=== PATIENT | male | born 1950 | race Caucasian/White ===

== ENCOUNTER 2021-05-06 09:55 | Observation (INO) ==
--- NOTE | 2020-11-18 12:39 | PAT Medication Instructions ---
Medication Instructions Date of Service November 18, 2020 Home Medications aspirin 81 mg tablet,delayed release 81 mg PO QPM hydrochlorothiazide 25 mg tablet 25 mg PO QPM lisinopril 40 mg tablet 40 mg PO QPM meloxicam 15 mg tablet (Mobic) 15 mg PO QPM Centrum Silver Ultra Men's 1 tab PO QPM omega-3 fatty acids 1,000 mg capsule (Fish Oil Concentrate) 2,000 mg PO QPM simvastatin 10 mg tablet 10 mg PO QPM tamsulosin 0.4 mg capsule 0.4 mg PO QPM acetaminophen 500 mg capsule 1,000 mg PO Q6H PRN ASK your surgeon for instructions meloxicam 15 mg tablet (Mobic) 15 mg PO QPM STOP taking 2 weeks before surgery (or as soon as possible if surgery is within 2 weeks) omega-3 fatty acids 1,000 mg capsule (Fish Oil Concentrate) 2,000 mg PO QPM Take morning of surgery With a small sip of water, OTHERWISE NOTHING TO EAT OR DRINK AFTER MIDNIGHT: acetaminophen 500 mg capsule 1,000 mg PO Q6H PRN (okay to take up to 4 hours prior to surgery if needed) Take evening before surgery aspirin 81 mg tablet,delayed release 81 mg PO QPM (continue as normal unless told otherwise by surgeon) hydrochlorothiazide 25 mg tablet 25 mg PO QPM lisinopril 40 mg tablet 40 mg PO QPM Centrum Silver Ultra Men's 1 tab PO QPM simvastatin 10 mg tablet 10 mg PO QPM tamsulosin 0.4 mg capsule 0.4 mg PO QPM acetaminophen 500 mg capsule 1,000 mg PO Q6H PRN (if needed) Other Notes If you have any questions please call us at [phone] or [phone] or [phone] or [phone]
--- NOTE | 2020-11-22 09:25 | Anesthesiology Consultation ---
Date of Service November 22, 2020 Assessment & Plan (1) Encounter for pre-operative examination: - Abnormal CXR: Preop CXR noted 8mm ANA nodular density. Awaiting response from PCP if further chest imaging needed prior to surgery from their perspective. - COVID screening: Per assessment on 11/22: Travel screen negative, no known COVID-19 positive contacts or current COVID-19 related symptoms. Patient vaccinated. Surgeon arranging preop COVID testing. Awaiting results. Chart Review Chart Review: Patient seen in Pre Admission Testing Teaching & Discussion Pre-Anesthesia Teaching/Discussion Notes: Instructed NPO after midnight before surgery,except medications with 15 cc of water. Medication instructions provided according to the PAT guidelines. History Surgery Operation Date: 12/24/20 09:55 Proposed Procedures p Right Total Knee Arthroplasty - Leif Morales DO Height/Weight Height: 5 ft 6 in Weight: 81.6 kg Allergies Allergy/AdvReac Type Severity Reaction Status Date / Time No Known Allergies Allergy Verified 11/17/20 10:07 Medications Home Medications Medication Instructions Recorded Confirmed Last Taken aspirin 81 mg tablet,delayed 81 mg PO QPM 10/05/20 11/17/20 Unknown release hydrochlorothiazide 25 mg tablet 25 mg PO QPM 10/05/20 11/17/20 Unknown lisinopril 40 mg tablet 40 mg PO QPM 10/05/20 11/17/20 Unknown meloxicam 15 mg tablet (Mobic) 15 mg PO QPM 10/05/20 11/17/20 Unknown [id number]-[id number] acid 300 1 tab PO QPM 10/05/20 11/17/20 Unknown mcg-lycopene 600 mcg-lutein 300 mcg tablet (Centrum Silver Ultra Men's) omega-3 fatty acids 1,000 mg 2,000 mg PO QPM 10/05/20 11/17/20 Unknown capsule (Fish Oil Concentrate) simvastatin 10 mg tablet 10 mg PO QPM 10/05/20 11/17/20 Unknown tamsulosin 0.4 mg capsule 0.4 mg PO QPM 10/05/20 11/17/20 Unknown acetaminophen 500 mg capsule 1,000 mg PO Q6H PRN 11/17/20 11/17/20 Unknown Past Medical History Medical History Arthritis Hyperlipidemia Hypertension Exercise / Class Metabolic Activity II 4-5 Yardwork/Stairs/Walk up hill (one FS (no CP, no SOB)) Past Family History Family History Other No known health problems Past Surgical History Surgical History History of colonoscopy 2020 History of open reduction and internal fixation (ORIF) procedure R/L elbow Past Anesthesia History No Hx of Anesthesia Complications and No Family Hx of Anesthesia Complications History of PONV No Hx of PONV and No Hx of Motion Sickness Social History Smoking Status: Never smoker Do You Dip or Chew Tobacco: Yes (1 can/3 days > advised none DOS) Hx Alcohol Use: Yes Alcohol type: beer alcohol intake frequency: a few times a week Hx Substance Use: Yes substance use type: prescription drug Review of Systems Patient denies chest pain, shortness of breath, dyspnea on exertion, fever, chills, cough, wheezing, palpitations. Physical Exam Vital Signs VITALS BP 121/67 P 58 TEMP 98.0 SP02 96%RA RESP 16 PHYSICAL Midly decreased cervical extension range of motion. Full TMJ range of motion. TMD 3 finger breaths Mallampati Score 2 Dentition: intact, several caps Lungs: clear throughout to auscultation Cardiac: regular rate and rhythm, no murmurs noted Spine: normal Carotid arteries: negative bruit Extremities: no edema Lab Results Anesthesia Preop Results Results Anesthesia Widget: WBC 6.04 K/uL (4.8-10.8) 11/22/20 Hgb 15.1 g/dL (14.0-18.0) 11/22/20 Hct 43.3 % (42-52) 11/22/20 Plt 242 K/uL (130-400) 11/22/20 Na 138 mmol/L (136-145) 11/22/20 K 4.2 mmol/L (3.5-5.1) 11/22/20 Cl 104 mmol/L (98-107) 11/22/20 CO2 27 mmol/L (21-32) 11/22/20 BUN 18 mg/dl (7-18) 11/22/20 Creat 1.08 mg/dl (0.6-1.4) 11/22/20 Glucose Level 92 mg/dl (70-99) 11/22/20 PT 10.4 Seconds (9.0-12.0) 11/22/20 PTT 27.8 Seconds (21.0-31.0) 11/22/20 INR 1.0 (0.9-1.1) 11/22/20 Blood Type O Positive 11/22/20 Antibody Screen NEGATIVE 11/22/20 Testing Electrocardiogram Date: 11/22/20 SB at 55bpm. Chest X-Ray Date: 11/22/20 No active disease in the chest. Question an 8 mm nodular density in the left upper lung. This projects over 2 ribs and may be artifactual. A repeat PA image with oblique views is recommended for reassessment.
--- NOTE | 2021-02-09 10:20 | Anesthesiology Consultation ---
Date of Service February 09, 2021 Assessment & Plan (1) Encounter for pre-operative examination: Chart Review Chart Review: Acceptable Risk for Surgery and Patient NOT seen in Pre Admission Testing The patient is an acceptable medical risk for the same day joint program. Consults Requested none History Surgery Operation Date: 02/14/21 08:50 Proposed Procedures p Right Total Knee Arthroplasty - Leif Morales DO PCP ordered a CT to follow-up on abnormal findings on CXR. CT done 12/13/20 showed multiple bilateral calcified and noncalcified 5 mm or less nodules. Recommended follow-up in 12 months. Height/Weight Height: 5 ft 6 in Weight: 81.6 kg Allergies Allergy/AdvReac Type Severity Reaction Status Date / Time No Known Allergies Allergy Verified 02/02/21 11:42 Medications Home Medications Medication Instructions Recorded Confirmed Last Taken aspirin 81 mg tablet,delayed 81 mg PO QPM 10/05/20 02/02/21 Unknown release hydrochlorothiazide 25 mg tablet 25 mg PO QPM 10/05/20 02/02/21 Unknown lisinopril 40 mg tablet 40 mg PO QPM 10/05/20 02/02/21 Unknown meloxicam 15 mg tablet (Mobic) 15 mg PO QPM 10/05/20 02/02/21 Unknown qhsqrjmj-slb-brmcr acid 300 1 tab PO QPM 10/05/20 02/02/21 Unknown mcg-lycopene 600 mcg-lutein 300 mcg tablet (Centrum Silver Ultra Men's) omega-3 fatty acids 1,000 mg 2,000 mg PO QPM 10/05/20 02/02/21 Unknown capsule (Fish Oil Concentrate) simvastatin 10 mg tablet 10 mg PO QPM 10/05/20 02/02/21 Unknown tamsulosin 0.4 mg capsule 0.4 mg PO QPM 10/05/20 02/02/21 Unknown acetaminophen 500 mg capsule 1,000 mg PO Q6H PRN 11/17/20 02/02/21 Unknown Past Medical History Medical History Arthritis Hyperlipidemia Hypertension Past Family History Family History Other No known health problems Past Surgical History Surgical History History of colonoscopy 2020 History of open reduction and internal fixation (ORIF) procedure R/L elbow Social History Smoking Status: Never smoker Do You Dip or Chew Tobacco: Yes (1 can/3 days > advised none DOS) Hx Alcohol Use: Yes Alcohol type: beer alcohol intake frequency: a few times a week Hx Substance Use: No substance use type: does not use Testing Electrocardiogram Date: 11/22/20 SB at 55bpm. Chest X-Ray Date: 11/22/20 No active disease in the chest. Question an 8 mm nodular density in the left upper lung. This projects over 2 ribs and may be artifactual. A repeat PA image with oblique views is recommended for reassessment. Other Testing CT scan 12/13/20 Impression: 1. Multiple bilateral calcified and noncalcified 5 mm less nodules. Recommend 12 month follow-up to reevaluate. 2. Cholelithiasis.
--- NOTE | 2021-05-04 12:24 | Anesthesiology Consultation ---
Date of Service May 04, 2021 Assessment & Plan (1) Encounter for pre-operative examination: Chart Review Chart Review: Acceptable Risk for Surgery and Patient NOT seen in Pre Admission Testing Consults Requested none History Surgery Operation Date: 05/06/21 10:45 Proposed Procedures p Right Total Knee Arthroplasty - Leif Morales DO Height/Weight Height: 5 ft 5 in Weight: 81.647 kg Allergies Allergy/AdvReac Type Severity Reaction Status Date / Time No Known Allergies Allergy Verified 04/29/21 10:46 Medications Home Medications Medication Instructions Recorded Confirmed Last Taken aspirin 81 mg tablet,delayed 81 mg PO QPM 10/05/20 04/29/21 Unknown release hydrochlorothiazide 25 mg tablet 25 mg PO QPM 10/05/20 04/29/21 Unknown lisinopril 40 mg tablet 40 mg PO QPM 10/05/20 04/29/21 Unknown meloxicam 15 mg tablet (Mobic) 15 mg PO QPM /09/2004/29/21 Unknown dsqbdrkp-inu-vsone acid 300 1 tab PO QPM 10/05/20 04/29/21 Unknown mcg-lycopene 600 mcg-lutein 300 mcg tablet (Centrum Silver Ultra Men's) omega-3 fatty acids 1,000 mg 2,000 mg PO QPM 10/05/20 04/29/21 Unknown capsule (Fish Oil Concentrate) simvastatin 10 mg tablet 10 mg PO QPM 10/05/20 04/29/21 Unknown tamsulosin 0.4 mg capsule 0.4 mg PO QPM 10/05/20 04/29/21 Unknown acetaminophen 500 mg capsule 1,000 mg PO Q6H PRN 11/17/20 04/29/21 Unknown Past Medical History Medical History Arthritis Hyperlipidemia Hypertension Past Family History Family History Other No known health problems Past Surgical History Surgical History History of colonoscopy 2020 History of open reduction and internal fixation (ORIF) procedure R/L elbow Social History Smoking Status: Former smoker Smoking cigarettes per day: QUIT IN HIGH SCHOOL Do You Dip or Chew Tobacco: Yes (1 CAN PER 2 DAYS) Hx Alcohol Use: Yes Alcohol type: beer alcohol intake frequency: a few times a month Hx Substance Use: No substance use type: does not use Testing Laboratory Results Laboratory Tests 11/22/20 02/10/21 02/10/21 09:56 09:16 09:16 WBC 6.04 Hgb 15.1 Plt Count 242 PT 9.9 INR 1.0 APTT 26.4 Sodium 136 Potassium 3.8 Chloride 101 Carbon Dioxide 28 BUN 16 Creatinine 1.21 Glucose 109 H Electrocardiogram Date: 11/22/20 Sinus bradycardia, rate 55 bpm Otherwise normal ECG No previous ECGs available Confirmed by Livan Marin ([id number]) on 11/22/2020 3:54:46 PM Chest X-Ray Date: 11/22/20 IMPRESSION: 1. No active disease in the chest. 2. Question an 8 mm nodular density in the left upper lung. This projects over 2 ribs and may be artifactual. A repeat PA image with oblique views is recommended for reassessment.
--- NOTE | 2021-05-05 13:33 | History & Physical Report ---
Date of Service May 05, 2021 Assessment & Plan (1) Primary osteoarthritis of right knee: We will proceed with a right total knee arthroplasty. Postoperatively he will be started on aspirin for DVT prophylaxis and kept overnight in the hospital for postoperative medical management. He plans to use home health upon discharge. History of Present Illness Chief Complaint: Osteoarthritis of the right knee . Primary Care Provider: NO PCP Martin is a pleasant 70-year-old male who is been dealing with chronic worsening right knee pain. X-rays and clinical examination have been diagnostic for advanced osteoarthritis of the right knee. He had a right knee arthroscopy in the past which gave him very little relief. He is failed years of conservative treatment. He has elected to proceed with a right total knee arthroplasty.. Allergies Allergy/AdvReac Type Severity Reaction Status Date / Time No Known Allergies Allergy Verified 04/29/21 10:46 Home Medications Medication Instructions Recorded Confirmed Type aspirin 81 mg tablet,delayed 81 mg PO QPM 10/05/20 04/29/21 History release hydrochlorothiazide 25 mg tablet 25 mg PO QPM 10/05/20 04/29/21 History lisinopril 40 mg tablet 40 mg PO QPM 10/05/20 04/29/21 History meloxicam 15 mg tablet (Mobic) 15 mg PO QPM 10/05/20 04/29/21 History tsxsheze-qdk-swkbf acid 300 1 tab PO QPM 10/05/20 04/29/21 History mcg-lycopene 600 mcg-lutein 300 mcg tablet (Centrum Silver Ultra Men's) omega-3 fatty acids 1,000 mg 2,000 mg PO QPM 10/05/20 04/29/21 History capsule (Fish Oil Concentrate) simvastatin 10 mg tablet 10 mg PO QPM 10/05/20 04/29/21 History tamsulosin 0.4 mg capsule 0.4 mg PO QPM 10/05/20 04/29/21 History acetaminophen 500 mg capsule 1,000 mg PO Q6H PRN 11/17/20 04/29/21 History Past Med/Surg History Medical History Arthritis Hyperlipidemia Hypertension Surgical History History of colonoscopy 2020 History of open reduction and internal fixation (ORIF) procedure R/L elbow Family History Other No known health problems Social History Smoking Status: Former smoker Cigarettes Per Day: QUIT IN HIGH SCHOOL; Second Hand Exposure: No; Hx Alcohol Use: Yes Alcohol type: beer Hx Substance Use: No Preferred Language: Mexican Communication Ability: Effective Telephone Order Clerk Required: No Beliefs That Will Affect Care: None Current Living Situation: Spouse current occupational status: employed current occupation: [employer] Feels Safe at Home: Yes Assistive Devices: Brace/Splint/Immobilizer and Glasses Review of Systems All systems reviewed & are unremarkable except as noted in HPI & below. Physical Exam On physical examination of the right knee, he has a slight varus deformity. Is good motion of 0 to 120 degrees. He has no instability. He has pain of the distal medial femoral condyle and over the medial joint line. . Constitutional WD/WN, vitals as above Eyes PERRL, conjunctivae normal, anicteric sclerae ENMT external ear and nose normal, oropharynx normal Neck trachea midline, no thyromegaly Respiratory normal respiratory effort Cardiovascular RRR, no murmur, no edema Gastrointestinal (Abdomen) normal bowel sounds, soft, nontender, no hepatosplenomegaly Psychiatric A+Ox3, euthymic affect Results & Data Results & Data Laboratory Results . Diagnostic Findings X-rays of the right knee show advanced osteoarthritis with joint space narrowing, osteophyte formation, and xxhx-bw-upqh articulation . PG Care Time/CCT Total # of Minutes Spent Total Time Spent with Patient: Total time spent is greater than 50% in coordination of care (as documented) at patient's floor/unit and/or counseling patient: Coding Level of Care Code None Diagnoses Primary osteoarthritis of right knee M17.11
[~2021-05-06 09:55] MED LIST: ACETAMINOPHEN 500 MG TAB PO SCH; BUPIVACAINE 0.25% 30 ML VIAL ONE; BUPIVACAINE 0.5 % 5 MG/1 ML PF 10ML VIAL ONE; DEXAMETHASONE SOD INJ 4 MG/ML VIAL ONE; EPINEPHrine INJ 1 MG/ML AMP ONE; FAMOTIDINE 20 MG TAB PO SCH; Ketorolac (*for OR use only*) 30 MG, dexAMETHasone 4 MG, KETAMINE HCL (**OR use only) 1... INFIL SCH; LACTATED RINGER'S 1,000 ML IV SCH; LIDOCAINE 2%/EPINEPHRINE 1:200,000 20 ML SDV ONE; LR 500ML BOLUS, THEN 15ML/HR IV SCH; LR 60ML/HR IV SCH; ROPIVACAINE 0.5% HCL/PF 150 MG, BUPIVACAINE 0.75% MPF 20 ML, EPINEPHrine 30MG/30ML (OR ... INFIL SCH; ROPIVACAINE 0.5% HCL/PF 150 MG, BUPIVACAINE 0.75% MPF 20 ML, EPINEPHrine 30MG/30ML (OR ... INSTIL SCH; TRANEXAMIC ACID 1,000 MG **IV Intra-op IV SCH; TRANEXAMIC ACID 1,000 MG **IV Pre-op IV SCH; ceFAZolin 2000MG 2,000 MG/15 ML SYR IV SCH; dexAMETHasone 4 MG TAB PO SCH
--- NOTE | 2021-05-06 10:17 | History & Physical Bridge Note ---
Date of Service May 06, 2021 History & Physical Bridge Note I have examined the patient, reviewed the History & Physical and in the interval since the performance of the History & Physical I have noted the following changes of clinical significance: no changes noted
[2021-05-06 11:06] LABS: Basophils # (auto) 0.05 K/uL (0-0.2); Basophils % (auto) 0.7 %; Eosinophils # (auto) 0.14 K/uL (0-0.5); Eosinophils % (auto) 2.1 %; Hematocrit (blood only) 45.7 % (42-52); Hemoglobin 15.8 g/dL (14.0-18.0); Immature Granulocytes # (auto) 0.01 K/uL (0.00-0.02); Immature Granulocytes % (auto) 0.1 %; Lymphocytes # (auto) 1.35 K/uL (1.2-3.4); Lymphocytes % (auto) 20.2 %; Mean Corpuscular Hemoglobin 29.6 pg (25-34); Mean Corpuscular Volume 85.6 fL (80-100); Mean Platelet Volume 10.1 fL (7.4-10.4); Monocytes # (auto) 0.78 K/uL (0.11-0.59); Monocytes % (auto) 11.7 %; Neutrophils # (auto) 4.35 K/uL (1.4-6.5); Neutrophils % (auto) 65.2 %; Platelet Count 269 K/uL (130-400); RDW Coefficient of Variation 13.7 % (11.5-14.5); RDW Standard Deviation 43.1 fL (36.4-46.3); Red Blood Count 5.34 M/uL (4.7-6.1); White Blood Count 6.68 K/uL (4.8-10.8)
[2021-05-06 11:11] LABS: Mean Corpuscular Hgb Conc 34.6 g/dL (32-36)
[2021-05-06 11:17] LABS: Partial Thromboplastin Time 27.6 Seconds (21.0-31.0); Prothrombin Time 10.2 Seconds (9.0-12.0)
[2021-05-06 11:28] LABS: BUN Creatinine Ratio 17.7 (10-20); Calcium 9.7 mg/dl (8.5-10.1); Creatinine Clr Calc Pharmacy 61.1 ml/min; Est GFR (African American) 76.4 ml/min; Potassium 3.9 mmol/L (3.5-5.1)
[2021-05-06] MEDS ORDERED: fentaNYL citrate 100 MCG/2 ML VIAL ONE (11:56)
[2021-05-06] MEDS ORDERED: MIDAZOLAM HCL 1 MG/ML 2ML VIAL ONE (11:56)
[2021-05-06] MEDS ORDERED: ONDANSETRON INJ 2 MG/ML 2 ML VIAL ONE (12:03)
[2021-05-06] MEDS ORDERED: PROPOFOL IV EMULSION 10 MG/ML 20 ML VIAL IV ONE (12:03)
[2021-05-06] MEDS ORDERED: LIDOCAINE 2% 2 ML VIAL/AMP(20MG/ML) INFIL ONE (12:03)
[2021-05-06] MEDS ORDERED: ePHEDrine sulfate 50 MG/ML AMP IV PRN (13:37)
[2021-05-06] MEDS ORDERED: fentaNYL citrate 100 MCG/2 ML VIAL IV PRN (13:37)
[2021-05-06] MEDS ORDERED: ONDANSETRON INJ 2 MG/ML 2 ML VIAL IV PRN ×2 (13:37→16:40)
[2021-05-06] MEDS ORDERED: ATROPINE SULFATE 0.1 MG/ML 10ML SYR IV PRN (13:37)
[2021-05-06] MEDS ORDERED: PROMETHAZINE HCL 6.25 MG in SODIUM CHLORIDE 0.9% 50 ML IV PRN (13:37)
--- NOTE | 2021-05-06 14:11 | Operative Report ---
PG Post Operative Report Pre & Post Diagnosis Operation Date: 05/06/21 12:25 Pre-Op Diagnosis: Degenerative Joint Disease Right Knee Post-Op Diagnosis: Degenerative Joint Disease Right Knee I identified the patient and participated in the time-out.: Yes Procedure Operation Date: 05/06/21 12:25 Actual Procedures p Right Total Knee Arthroplasty, Cemented(Right) - Leif Morales DO Surgeon Leif Morales DO Warehouse Worker Leif Cueva PAC Estimated Blood Loss 10 Findings Consistent with Post-Op Diagnosis Specimens Right femoral and tibial bone Complications none Disposition Disposition: Recovery Room Indications Martin is a pleasant 70-year-old male who is been dealing with chronic increasing right knee pain. X-rays and clinical examination have been diagnostic for advanced osteoarthritis of the right knee. After failing conservative treatment, he elected proceed with a right total knee arthroplasty. Description of Procedure Implants used: I used a Nya Persona total knee arthroplasty system with a size 8 standard femur, F tibia, 34 oval patella, and a size 14 medial congruent polyethylene bearing. All components were cemented in place with Biomet cement. Martin arrived [facility] for the above procedure. He was seen in the preoperative holding area and the operative extremity was identified and signed. He was given a preoperative antibiotic, TXA, a spinal anesthetic and an adductor nerve block. He was taken back to the operating room and laid on the table in supine position. He was given basic sedation. The operative knee was then prepped and draped in sterile fashion. A timeout was done, and the patient and the operative extremity was properly identified. A midline incision was made directly over the patella. Dissection was taken down to the extensor mechanism. A subvastus arthrotomy was used. The medial retinaculum was released and the fat pad was mostly excised. The knee was flexed and the ACL, PCL, and meniscus were removed. A drill was sent down the center of the femoral canal followed by an intramedullary cristian. Off that cristian a distal femoral cutting block was placed. 9 mm was resected off the distal femur at 5 of valgus. A posterior referencing AP sizing guide was then placed on the distal femur. The femur measured to be a size 8 standard. 2 drill holes were placed in 3 of external rotation. A 4-in-1 cutting block was then impacted into place. Anterior, posterior, and chamfer cuts were then made. The proximal tibia was then exposed. An external tibial alignment guide was placed. A tibial cut guide was then anchored in place and the proximal tibia was then resected. The posterior aspect of the knee was then opened up and any additional meniscus fragments and osteophytes were removed. The tibia measured to be a size F. The tibial plate was then placed in the appropriate rotation and the tibia was drilled and punched. Trial components were then placed. I used a size 14 medial congruent polyethyle ne insert. The knee was brought through a full range of motion and felt to be stable. The peg holes for the femoral component were then drilled. The patella was then everted and 9 mm was resected off the posterior aspect of the patella. The patella measured to be a size 34 oval. 3 peg holes were then drilled. A trial patella was placed. The knee was once again brought through a full range of motion and felt to be stable. Trial components were then removed. The surrounding soft tissues were injected with 100 cc of an orthopedic pain control cocktail. All components were then cemented into place with Biomet cement. The final polyethylene insert was then snapped into place. Once cement was dry the tourniquet was deflated. Hemostasis was obtained. A dilute betadyne lavage was then done for 3 minutes. The joint was then irrigated with normal saline solution. The subvastus arthrotomy was then closed with #1 Vicryl suture. The skin was closed with 2-0 Vicryl, 3-0V lock suture, and jennifer. A soft compressive dressing was placed. He was then transferred to a hospital bed and taken to the postanesthesia care unit in stable condition. He tolerated the procedure well. Leif Cueva PA-C, was present for the entire procedure. He was critical for patient positioning, prepping, draping, retraction exposure, wound closure and application of sterile dressing. I attest to the content of the Intraoperative Record and any orders documented therein. Any exceptions are noted below.
--- NOTE | 2021-05-06 15:20 | Anesthesiology Progress Note ---
Date of Service May 06, 2021 Anesthesia Post Procedure Vital Signs Vital Signs: Temp Pulse Pulse Resp BP Pulse Ox 05/06/21 15:10 66 15 108/65 95 05/06/21 15:00 62 13 126/68 97 05/06/21 14:50 67 16 117/81 97 05/06/21 14:40 60 17 119/66 98 05/06/21 14:33 36.1 C L 73 16 104/66 98 05/06/21 10:43 36.8 C 64 18 135/82 99 Pain Intensity Right Knee: Pain Intensity: 2 Transfer of Care Handoff Completed per policy Notes Mental Status: alert / awake / arousable Patient Amnestic to Procedure: Yes Nausea / Vomiting: adequately controlled Pain: adequately controlled Airway Patency, RR, SpO2: stable & adequate BP & HR: stable & adequate Hydration State: stable & adequate Anesthetic Complications: no major complications apparent
--- NOTE | 2021-05-06 16:23 | XRay Report ---
RIGHT KNEE 2 VIEWS History: Right total knee arthroplasty. Degenerative arthritis. Postop. FINDINGS: The patient is status post a right total knee arthroplasty. The hardware is intact. No frac ture or dislocation. Skin jennifer are in place. IMPRESSION: Right total knee arthroplasty. No evidence for hardware complication. ACT 112: Negative or not required by law. Electronically signed by: Carlton Bradshaw M.D. 05/06/2021 4:22 PM
[2021-05-06] MEDS ORDERED: bisacodyL 10 MG SUPP PR PRN (16:40)
[2021-05-06] MEDS ORDERED: oxyCODONE HCL IR 5 MG TAB (IMMEDIATE RELEASE) PO PRN (16:40)
[2021-05-06] MEDS ORDERED: HYDROmorphone INJ 0.5 MG/0.5 ML SYR IV PRN (16:40)
[2021-05-06] MEDS ORDERED: METOCLOPRAMIDE HCL INJ 5 MG/ML 2 ML VIAL IV PRN (16:40)
[2021-05-06] MEDS ORDERED: NALOXONE HCL 0.4 MG/1 ML VIAL/CARP IV PRN (16:40)
[2021-05-06] MEDS ORDERED: MAGNESIUM HYDROXIDE SUSP 30 ML UDC PO PRN (16:40)
[2021-05-06] MEDS: SODIUM CHLORIDE 0.9% 1000ML 1,000 ML IV SCH (17:32)
[2021-05-06] MEDS: KETOROLAC TROMETHAMINE 15 MG/ML VIAL IV SCH ×2 (17:53→23:44)
[2021-05-06] MEDS: DOCUSATE SODIUM 100 MG CAP PO SCH (20:14)
[2021-05-06] MEDS: ASPIRIN 81 MG ECTAB PO SCH (20:15)
[2021-05-06] MEDS ORDERED: SENNA 8.6 MG TAB PO SCH (21:00)
[2021-05-06] MEDS ORDERED: SIMVASTATIN 10 MG TAB PO SCH (21:00)
[2021-05-06] MEDS ORDERED: lisinopril 40 MG TAB PO SCH (21:00)
[2021-05-06] MEDS ORDERED: hydroCHLOROthiazide 25 MG TAB PO SCH (21:00)
[2021-05-06] MEDS ORDERED: TAMSULOSIN HCL 0.4 MG CAP PO SCH (21:00)
[2021-05-06] MEDS: ACETAMINOPHEN 500 MG TAB PO SCH (22:03)
[2021-05-06] MEDS: ceFAZolin 2000MG 2,000 MG/15 ML SYR IV SCH (22:04)
[2021-05-07] MEDS: SODIUM CHLORIDE 0.9% 1000ML 1,000 ML IV SCH (03:43)
[2021-05-07] MEDS: ACETAMINOPHEN 500 MG TAB PO SCH (05:44)
[2021-05-07] MEDS: KETOROLAC TROMETHAMINE 15 MG/ML VIAL IV SCH ×2 (05:44→11:50)
[2021-05-07] MEDS: ceFAZolin 2000MG 2,000 MG/15 ML SYR IV SCH (05:44)
[2021-05-07] MEDS ORDERED: dexAMETHasone 4 MG TAB PO SCH (08:00)
[2021-05-07] MEDS: ASPIRIN 81 MG ECTAB PO SCH (08:26)
[2021-05-07] MEDS: DOCUSATE SODIUM 100 MG CAP PO SCH (08:27)
--- NOTE | 2021-05-07 08:31 | Orthopedic Progress Note ---
Date of Service May 07, 2021 Assessment & Plan (1) Status post total right knee replacement: Overall is doing very well. Is not any much pain in the right knee. He will be seen by physical therapy today for ambulation and range of motion exercises. He is on aspirin for DVT prophylaxis. He can be discharged home later today. He will follow-up with orthopedics in 2 weeks. Irving Salazar was seen and examined at bedside this morning. Overall is doing very well. Is not any much pain in the right knee. Has been up and ambulating to the bathroom. He has no complaints.. Review of Systems All systems reviewed & are unremarkable except as noted in HPI & below. Physical Exam On physical examination of the right knee, the dressing is clean and dry. His legs out in full extension. He has active dorsiflexion plantarflexion of his right ankle.. Results & Data Results & Data Laboratory Results . Diagnostic Findings Postoperative x-rays of the right knee show the prosthesis to be in anatomic alignment without any evidence of fracture, dislocation, or loosening. PG Care Time/CCT Total # of Minutes Spent Total Time Spent with Patient: Total time spent is greater than 50% in coordination of care (as documented) at patient's floor/unit and/or counseling patient: Coding Level of Care Code 52817 Post Operative Follow-Up Diagnoses Status post total right knee replacement Z96.651
--- NOTE | 2021-05-07 08:32 | Discharge Summary ---
Date of Service May 07, 2021 Admission HPI (Per Admitting) Martin is a pleasant 70-year-old male who is been dealing with chronic worsening right knee pain. X-rays and clinical examination have been diagnostic for advanced osteoarthritis of the right knee. He had a right knee arthroscopy in the past which gave him very little relief. He is failed years of conservative treatment. He has elected to proceed with a right total knee arthroplasty.. Admission Exam (Per Admitting) On physical examination of the right knee, he has a slight varus deformity. Is good motion of 0 to 120 degrees. He has no instability. He has pain of the distal medial femoral condyle and over the medial joint line. . Principal Diagnosis Same as "Discharge Diagnosis" noted below under Discharge Instructions. Discharge Exam On physical examination of the right knee, the dressing is clean and dry. His legs out in full extension. He has active dorsiflexion plantarflexion of his right ankle.. Discharge Data Procedures Performed Operation Date: 05/06/21 12:25 Actual Procedures p Right Total Knee Arthroplasty, Cemented(Right) - Leif Morales DO Ordered Studies 02/14/21 05:00 US - OR guided needle placemen Routine 05/06/21 05:00 US - OR guided needle placemen Routine Hospital Course (1) Status post total right knee replacement: On 05-06-2021 Martin arrived at [facility] and underwent a right knee replacement without complication. He had a spinal anesthetic. Postoperatively he was started on aspirin for DVT prophylaxis and transferred to the general orthopedic floors. His hospital course was uneventful. On postop day #1 his vital signs were stable and his pain was well controlled. He was able to participate well with physical therapy doing ambulation and range of motion exercises. He was then discharged home. He will follow-up with orthopedics in 2 weeks. PG Care Time/CCT Total # of Minutes Spent Total Time Spent with Patient: Total time spent is greater than 50% in coordination of care (as documented) at patient's floor/unit and/or counseling patient: Discharge Plan Discharge Items Patient Disposition: Home - Home Health Services Reason For Visit: DJD Right Knee Discharge Diagnosis: Right knee replacement Activity: As commented below Non-emergency contact: Surgeon Call non-emergency contact if: your wound has increased redness and your wound has increased drainage Follow-up/Referrals: PCP,NO [Primary Care Provider] - Diet: Regular Addtl Attending Provider Instructions: Activity and Therapy Recommendations: * If you are using [facility] then therapy will be provided at your home until they feel you have accomplished all of your goals. * If you are using [facility] then Physical Therapy will be provided until they feel you are ready to start Outpatient Physical Therapy. * If you are not using home therapy then Outpatient Physical Therapy should start about 3-5 days from your day of surgery. Therapy will last about 6-10 weeks * It is important not to put a pillow under your knee when you are relaxing or sleeping. It is just as important to make sure you are getting your knee perfectly straight as it is to regain your knee bend. * You were shown a series of exercises in the hospital. Do these exercises three times each day including the exercises you were shown in physical therapy. * Get up and walk several times each day. For the first four weeks, try not to stand or walk for more than one hour at a time. If you do stand or walk for more than one hour, you will not hurt anything, but your leg will likely swell. * As you feel comfortable, you may change from the walker or crutches to a cane and then to independent walking. Medications: * Narcotic You will likely be sent home from the hospital with a prescription for the narcotic pain medication that worked best throughout your stay. * Aspirin Most patients will be required to take Aspirin 81mg twice a day for 6 weeks after surgery. This is obtained [id number] and a prescription is not necessary. * Other medications may be prescribed for specific circumstances. If you have any questions, please call the office at . * Resume previous home medications unless otherwise instructed TEDs/Elastic Stockings: The white elastic stockings help limit swelling and prevent blood clots from forming in your legs.~ The more you wear them, the more they work. Wear them for six weeks. Dressing Care: The dressing can be changed after physical therapy on postop day #1. Daily dry dressing changes for a few days, especially if the incision is still draining some. If the incision is not draining then you may leave the jennifer open to air. If there is a little bit of drainage or if the jennifer are getting stuck on your clothing then cover the incision with a dry dressing. The jennifer will be removed at your 2 week follow-up appointment. Showering: You may shower 5 days from the day of surgery as long as the incision is no longer draining. You may shower with the jennifer exposed. Let soapy water run over the jennifer and pat them dry. Do not scrub or soak the incision. Things To Watch For: * Drainage from the incision site that occurs more than one week after your surgery. * Increased redness at the incision site. * Fever above 102 degrees Fahrenheit. * Unusual chest pain or shortness of breath. * Call [facility] at with any of the above problems Follow-Up Visit: Follow-up with Dr. Morales's PA (Leif Cueva) 2-3 weeks after your day of surgery. He will remove your jennifer and answer any questions. If you have any additional questions or concerns, Dr Morales is usually in the office at the same time and will be available An appointment was probably scheduled when you signed-up for surgery in the office. If you have any questions call Office Instructions: More detailed instructions as well as Frequently Asked Questions were provided in a folder by our office when you signed-up for surgery. Please review these instructions when you get home. If you have any further questions or concerns, please feel free to call the office at [phone] Pending Studies at Discharge: No Stand-Alone Forms: My [facility], Smoking Cessation Medications and DC Order Prescriptions: New oxycodone-acetaminophen 5-325 mg tablet 1 tab PO Q6H PRN (Reason: pain) Qty: 30 RF: 0 Continued meloxicam [Mobic] 15 mg tablet 15 mg PO QPM RF: 0 omega-3 fatty acids [Fish Oil Concentrate] 1,000 mg capsule 2,000 mg PO QPM RF: 0 Centrum Silver Ultra Men's 300-600-300 mcg tablet 1 tab PO QPM RF: 0 lisinopril 40 mg tablet 40 mg PO QPM RF: 0 tamsulosin 0.4 mg capsule 0.4 mg PO QPM RF: 0 hydrochlorothiazide 25 mg tablet 25 mg PO QPM RF: 0 simvastatin 10 mg tablet 10 mg PO QPM RF: 0 acetaminophen [Tylenol Extra Strength] 500 mg Capsule 1,000 mg PO Q6H PRN (Reason: Pain) RF: 0 Changed aspirin 81 mg tablet,delayed release (DR/EC) 81 mg PO BID 42 Days Qty: 0 RF: 0 Discharge Orders: Discharge Order (Routine); Ordered 05/07/21 Ordered By: Leif Morales Admission Data Admit Date/Time: 05/06/21 15:39 Attending Provider: Leif Morales Admit Provider: Leif Morales Primary Care Provider: PCP,DEVIN
[2021-05-07] MEDS ORDERED: MULTIVITAMIN TAB PO SCH (09:00)
== END 2021-05-07 13:33 | disposition home health service (06) ==
LOC: 3E 09:55 → ASU 09:55

== ENCOUNTER 2021-10-17 09:53 | Observation (INO) ==
--- NOTE | 2021-09-15 13:40 | PAT Medication Instructions ---
Medication Instructions Date of Service September 15, 2021 Home Medications Medication Instructions Recorded oxycodone-acetaminophen 5 mg-325 1 tab PO Q6H PRN #30 tab 05/07/ mg tablet hydrochlorothiazide 25 mg tablet 25 mg PO QPM lisinopril 40 mg tablet 40 mg PO QPM meloxicam 15 mg tablet (Mobic) 15 mg PO QPM Centrum Silver Ultra Men's 1 tab PO QPM omega-3 fatty acids 1,000 mg capsule (Fish Oil Concentrate) 2,000 mg PO QPM simvastatin 10 mg tablet 10 mg PO QPM tamsulosin 0.4 mg capsule 0.4 mg PO QPM acetaminophen 500 mg capsule 1,000 mg PO Q6H PRN oxycodone-acetaminophen 5 mg-325 mg tablet 1 tab PO Q6H PRN aspirin 81 mg tablet,delayed release 81 mg PO BID ASK your surgeon for instructions meloxicam 15 mg tablet (Mobic) 15 mg PO QPM ASK your prescriber and surgeon aspirin 81 mg tablet,delayed release 81 mg PO BID STOP taking 2 weeks before surgery (or as soon as possible if surgery is within 2 weeks) omega-3 fatty acids 1,000 mg capsule (Fish Oil Concentrate) 2,000 mg PO QPM Take morning of surgery With a small sip of water, OTHERWISE NOTHING TO EAT OR DRINK AFTER MIDNIGHT: acetaminophen 500 mg capsule 1,000 mg PO Q6H PRN (if needed) oxycodone-acetaminophen 5 mg-325 mg tablet 1 tab PO Q6H PRN (if needed) Take evening before surgery hydrochlorothiazide 25 mg tablet 25 mg PO QPM lisinopril 40 mg tablet 40 mg PO QPM Centrum Silver Ultra Men's 1 tab PO QPM simvastatin 10 mg tablet 10 mg PO QPM tamsulosin 0.4 mg capsule 0.4 mg PO QPM acetaminophen 500 mg capsule 1,000 mg PO Q6H PRN (if needed) oxycodone-acetaminophen 5 mg-325 mg tablet 1 tab PO Q6H PRN (if needed) Other Notes If you have any questions please call us at [phone] or [phone] or [phone] or [phone]
--- NOTE | 2021-09-20 11:40 | Anesthesiology Consultation ---
Date of Service September 20, 2021 Assessment & Plan (1) Encounter for pre-operative examination: - COVID screening: Per assessment on 09/20: No known COVID-19 positive contacts or current COVID-19 related symptoms. Travel screen negative. Patient vaccinated. Surgeon arranging preop COVID testing. Awaiting results. - S/P Right TKA (05/06/21): SAB at L3/4 (x1 attempt) + PNB at [facility] - Positive antibodies: Per Marcin at blood bank, recollection needs to be done 10/15 between 7:00-noon. Patient aware and will come to [facility] for lab work per blood bank. Marcin recommended case be moved later in the day to give more time for blood bank preparation (Ally at surgeon's office aware/arranging). Chart Review Chart Review: Acceptable Risk for Surgery and Patient seen in Pre Admission Testing Teaching & Discussion Pre-Anesthesia Teaching/Discussion Notes: Instructed NPO after midnight before surgery,except medications with 15 cc of water. Medication instructions provided according to the PAT guidelines. History Surgery Operation Date: 10/17/21 07:00 Proposed Procedures p Left Total Knee Arthroplasty - Leif Morales, Height/Weight Height: 5 ft 5 in Weight: 84.8 kg Allergies Allergy/AdvReac Type Severity Reaction Status Date / Time No Known Allergies Allergy Verified 09/15/21 12:01 Medications Home Medications Medication Instructions Recorded Confirmed Last Taken hydrochlorothiazide 25 mg tablet 25 mg PO QPM 10/05/20 09/15/21 05/05/21 19:00 lisinopril 40 mg tablet 40 mg PO QPM 10/05/20 09/15/21 05/05/21 19:00 meloxicam 15 mg tablet (Mobic) 15 mg PO QPM 10/05/20 09/15/21 05/02/21 ssnsobjh-wow-xmbyl acid 300 1 tab PO QPM 10/05/20 09/15/21 05/05/21 18:00 mcg-lycopene 600 mcg-lutein 300 mcg tablet (Centrum Silver Ultra Men's) omega-3 fatty acids 1,000 mg 2,000 mg PO QPM 10/05/20 09/15/21 03/02/21 capsule (Fish Oil Concentrate) simvastatin 10 mg tablet 10 mg PO QPM 10/05/20 09/15/21 05/05/21 19:00 tamsulosin 0.4 mg capsule 0.4 mg PO QPM 10/05/20 09/15/21 05/05/21 19:00 acetaminophen 500 mg capsule 1,000 mg PO Q6H PRN 11/17/20 09/15/21 05/05/21 21:00 oxycodone-acetaminophen 5 mg-325 1 tab PO Q6H PRN #30 tab 05/07/21 09/15/21 Unkn own mg tablet aspirin 81 mg tablet,delayed 81 mg PO BID 09/15/21 09/15/21 Unknown release Past Medical History Medical History Arthritis Hyperlipidemia Hypertension Exercise / Class Metabolic Activity II 4-5 Yardwork/Stairs/Walk up hill (one FS (no CP, no SOB)) Past Family History Family History Other No known health problems Past Surgical History Surgical History History of colonoscopy 2020 History of open reduction and internal fixation (ORIF) procedure R/L elbow History of right knee joint replacement Right TKA (05/06/21): SAB at L3/4 (x1 attempt) + PNB at [facility] Past Anesthesia History No Hx of Anesthesia Complications and No Family Hx of Anesthesia Complications History of PONV No Hx of PONV and No Hx of Motion Sickness Social History Smoking Status: Former smoker tobacco type: smokeless tobacco Smoking cigarettes per day: Quit in high school Do You Dip or Chew Tobacco: Yes (Advised none DOS) Hx Alcohol Use: Yes Alcohol type: beer alcohol intake frequency: a few times a month Hx Substance Use: No substance use type: does not use Review of Systems Patient denies chest pain, shortness of breath, dyspnea on exertion, fever, chills, cough, wheezing, palpitations. Physical Exam Vital Signs VITALS BP 132/74 P 67 TEMP 98.5 SP02 97%RA RESP 18 PHYSICAL Full cervical extension range of motion. Full TMJ range of motion. TMD 3.5 finger breaths Mallampati Score 2 Dentition: intact, upper front four teeth with caps Lungs: clear throughout to auscultation Cardiac: regular rate and rhythm, no murmurs noted Spine: normal Carotid arteries: negative bruit Extremities: no edema Lab Results Anesthesia Preop Results Results Anesthesia Widget: WBC 6.82 K/uL (4.8-10.8) 09/20/21 Hgb 15.7 g/dL (14.0-18.0) 09/20/21 Hct 45.4 % (42-52) 09/20/21 Plt 273 K/uL (130-400) 09/20/21 Na 139 mmol/L (136-145) 09/20/21 K 4.1 mmol/L (3.5-5.1) 09/20/21 Cl 102 mmol/L (98-107) 09/20/21 CO2 30 mmol/L (21-32) 09/20/21 BUN 17 mg/dl (6-23) 09/20/21 Creat 1.11 mg/dl (0.6-1.4) 09/20/21 Glucose Level 101 mg/dl (70-99(Fasting)) H 09/20/21 PT 10.4 Seconds (9.0-12.0) 09/20/21 PTT 25.8 Seconds (21.0-31.0) 09/20/21 INR 1.0 (0.9-1.1) 09/20/21 Blood Type O Positive 09/20/21 Antibody Screen POSITIVE A 09/20/21 Direct Antiglob Test Positive (Negative) A 09/20/21 Testing Electrocardiogram Date: 11/22/20 Sinus bradycardia 55 bpm. Otherwise normal ECG. Chest X-Ray Date: 11/22/20 IMPRESSION: No active disease in the chest. Question an 8 mm nodular density in the left upper lung. This projects over 2 ribs and may be artifactual. A repeat PA image with oblique views is recommended for reassessment. PCP ordered a CT to follow-up on abnormal findings on CXR. CT done 12/13/20 showed multiple bilateral calcified and noncalcified 5 mm or less nodules. Recommended follow-up in 12 months. Other Testing Chest CT (12/13/20) Multiple bilateral calcified and noncalcified 5 mm or less nodules. Recommended follow-up in 12 months.
[~2021-10-17 09:53] MED LIST changes: -BUPIVACAINE 0.25% 30 ML VIAL ONE; -DEXAMETHASONE SOD INJ 4 MG/ML VIAL ONE; -EPINEPHrine INJ 1 MG/ML AMP ONE; +GABAPENTIN 300 MG CAP PO SCH; -LACTATED RINGER'S 1,000 ML IV SCH; -LIDOCAINE 2%/EPINEPHRINE 1:200,000 20 ML SDV ONE; +ROPIVACAINE 0.5% 5 MG/ML 30 ML VIAL ONE; -ROPIVACAINE 0.5% HCL/PF 150 MG, BUPIVACAINE 0.75% MPF 20 ML, EPINEPHrine 30MG/30ML (OR ... INFIL SCH; -ROPIVACAINE 0.5% HCL/PF 150 MG, BUPIVACAINE 0.75% MPF 20 ML, EPINEPHrine 30MG/30ML (OR ... INSTIL SCH; -ceFAZolin 2000MG 2,000 MG/15 ML SYR IV SCH
--- NOTE | 2021-10-17 11:07 | History & Physical Bridge Note ---
Date of Service October 17, 2021 History & Physical Bridge Note I have examined the patient, reviewed the History & Physical and in the interval since the performance of the History & Physical I have noted the following changes of clinical significance: no changes noted
[2021-10-17] MEDS ORDERED: ATROPINE SULFATE 0.1 MG/ML 10ML SYR IV PRN (11:24)
[2021-10-17] MEDS ORDERED: HYDROmorphone INJ 2 MG/ML SYR/VIAL IV PRN (11:24)
[2021-10-17] MEDS ORDERED: fentaNYL citrate 100 MCG/2 ML VIAL IV PRN (11:24)
[2021-10-17] MEDS ORDERED: ONDANSETRON INJ 2 MG/ML 2 ML VIAL IV PRN ×2 (11:24→16:30)
[2021-10-17] MEDS ORDERED: ePHEDrine sulfate 50 MG/ML AMP IV PRN (11:24)
[2021-10-17] MEDS ORDERED: MIDAZOLAM HCL 1 MG/ML 2ML VIAL ONE (12:54)
[2021-10-17] MEDS ORDERED: ORTHO JOINT ANESTHETIC ONE (13:08)
[2021-10-17] MEDS: ceFAZolin 2000MG 2,000 MG/15 ML SYR IV SCH ×2 (13:22→20:18)
[2021-10-17] MEDS ORDERED: PROPOFOL IV EMULSION 10 MG/ML 20 ML VIAL IV ONE (13:47)
[2021-10-17] MEDS ORDERED: PHENYLEPHRINE HCL 10 MG/ML VIAL ONE (14:31)
--- NOTE | 2021-10-17 14:44 | Operative Report ---
PG Post Operative Report Pre & Post Diagnosis Operation Date: 10/17/21 12:30 Pre-Op Diagnosis: Degenerative Joint Disease Left Knee Post-Op Diagnosis: Degenerative Joint Disease Left Knee I identified the patient and participated in the time-out.: Yes Procedure Operation Date: 10/17/21 12:30 Actual Procedures p Left Total Knee Arthroplasty(Left) - Leif Morales DO Surgeon Leif Morales DO Chin Strap Cutter Hermilo Lepe PA-C Estimated Blood Loss 30 Findings Consistent with Post-Op Diagnosis Specimens Left femoral and tibial bone Description of Procedure Implants used: I used a Nya Persona total knee arthroplasty system with a size 8 standard femur, F tibia, 31 oval patella, and a size 11 medial congruent polyethylene bearing. All components were cemented in place with Biomet cement. Martin arrived [facility] for the above procedure. He was seen in the preoperative holding area and the operative extremity was identified and signed. He was given a preoperative antibiotic, TXA, a spinal anesthetic and an adductor nerve block. He was taken back to the operating room and laid on the table in supine position. He was given basic sedation. The operative knee was then prepped and draped in sterile fashion. A timeout was done, and the patient and the operative extremity was properly identified. A midline incision was made directly over the patella. Dissection was taken down to the extensor mechanism. A subvastus arthrotomy was used. The medial retinaculum was released and the fat pad was mostly excised. The knee was flexed and the ACL, PCL, and meniscus were removed. A drill was sent down the center of the femoral canal followed by an intramedullary cristian. Off that cristian a distal femoral cutting block was placed. 9 mm was resected off the distal femur at 5 of valgus. A posterior referencing AP sizing guide was then placed on the distal femur. The femur measured to be a size 8. 2 drill holes were placed in 3 of external rotation. A 4-in-1 cutting block was then impacted into place. Anterior, posterior, and chamfer cuts were then made. The proximal tibia was then exposed. An external tibial alignment guide was placed. A tibial cut guide was then anchored in place and the proximal tibia was then resected. The posterior aspect of the knee was then opened up and any additional meniscus fragments and osteophytes were removed. The tibia measured to be a size F. The tibial plate was then placed in the appropriate rotation and the tibia was drilled and punched. Trial components were then placed. I used a size 11 medial congruent polyethylene insert. The knee was brought through a full range of motion and felt to be stable. The peg holes for the femoral component were then drilled. The patella was then everted and 9 mm was resected off the posterior aspect of the patella. The patella measured to be a size 31 oval. 3 peg holes were then drilled. A trial patella was placed. The knee was once again brought through a full range of motion and felt to be stable. Trial components were then removed. The surrounding soft tissues were injected with 100 cc of an orthopedic pain control cocktail. All components were then cemented into place with Biomet cement. The final polyethylene insert was then snapped into place. Once cement was dry the tourniquet was deflated. Hemostasis was obtained. A dilute betadyne lavage was then done for 3 minutes. The joint was then irrigated with normal saline solution. The subvastus arthrotomy was then closed with #1 Vicryl suture. The skin was closed with 2-0 Vicryl, 3-0V lock suture, and jennifer. A soft compressive dressing was placed. He was then transferred to a hospital bed and taken to the postanesthesia care unit in stable condition. He tolerated the procedure well. Hermilo Lepe PA-C, was present for the entire procedure. He was critical for patient positioning, prepping, draping, retraction exposure, wound closure and application of sterile dressing. I attest to the content of the Intraoperative Record and any orders documented therein. Any exceptions are noted below.
--- NOTE | 2021-10-17 15:25 | XRay Report ---
TWO VIEWS LEFT KNEE CLINICAL HISTORY: Postoperative examination. FINDINGS: AP and crosstable lateral portable views of the left knee are obtained. A left knee arthrop lasty is in near anatomic alignment. There has been undersurface remodeling of the patella. No acute fracture is seen. There are expected postoperative changes around the knee including skin clips, soft tissue edema, and subcutaneous gas. IMPRESSION: Expected postoperative changes status post left knee arthroplasty. No acute fracture is s een. ACT 112: Negative or not required by law. Electronically signed by: Derick Lucas M.D. 10/17/2021 3:23 PM
--- NOTE | 2021-10-17 15:34 | Anesthesiology Progress Note ---
Date of Service October 17, 2021 Anesthesia Post Procedure Vital Signs Vital Signs: Temp Pulse Pulse Resp BP Pulse Ox O2 Del Method 10/17/21 15:30 66 15 106/66 95 Room Air 10/17/21 15:20 63 13 105/65 96 Room Air 10/17/21 15:10 61 19 111/70 100 Oxymask 10/17/21 15:00 59 L 15 113/69 99 Oxymask 10/17/21 14:51 36.6 C 75 12 108/73 95 Oxymask 10/17/21 10:38 36.4 C L 63 18 123/74 99 Room Air O2 Flow Rate 10/17/21 15:30 10/17/21 15:20 10/17/21 15:10 9 10/17/21 15:00 9 10/17/21 14:51 9 10/17/21 10:38 Transfer of Care Handoff Completed per policy Notes Mental Status: alert / awake / arousable Patient Amnestic to Procedure: Yes Nausea / Vomiting: adequately controlled Pain: adequately controlled Airway Patency, RR, SpO2: stable & adequate BP & HR: stable & adequate Hydration State: stable & adequate Neuraxial Anesthesia: was administered and sensory block is resolving Anesthetic Complications: no major complications apparent
[2021-10-17] MEDS ORDERED: NALOXONE HCL 0.4 MG/1 ML VIAL/CARP IV PRN (16:30)
[2021-10-17] MEDS ORDERED: bisacodyL 10 MG SUPP PR PRN (16:30)
[2021-10-17] MEDS ORDERED: METOCLOPRAMIDE HCL INJ 5 MG/ML 2 ML VIAL IV PRN (16:30)
[2021-10-17] MEDS ORDERED: MAGNESIUM HYDROXIDE SUSP 30 ML UDC PO PRN (16:30)
[2021-10-17] MEDS: SODIUM CHLORIDE 0.9% 1000ML 1,000 ML IV SCH (16:38)
[2021-10-17] MEDS: DOCUSATE SODIUM 100 MG CAP PO SCH (20:08)
[2021-10-17] MEDS: ASPIRIN 81 MG ECTAB PO SCH (20:09)
[2021-10-17] MEDS ORDERED: hydroCHLOROthiazide 25 MG TAB PO SCH (21:00)
[2021-10-17] MEDS ORDERED: TAMSULOSIN HCL 0.4 MG CAP PO SCH (21:00)
[2021-10-17] MEDS ORDERED: MULTI VIT W/MINERALS LIQUID 15 ML UDP PO SCH (21:00)
[2021-10-17] MEDS ORDERED: lisinopril 40 MG TAB PO SCH (21:00)
[2021-10-17] MEDS ORDERED: SENNA 8.6 MG TAB PO SCH (21:00)
[2021-10-17] MEDS ORDERED: SIMVASTATIN 10 MG TAB PO SCH (21:00)
[2021-10-17] MEDS ORDERED: OMEGA-3 (PURIFIED FISH OIL) 1 GM CAP PO SCH (21:00)
[2021-10-17] MEDS: oxyCODONE HCL IR 5 MG TAB (IMMEDIATE RELEASE) PO PRN (22:34)
[2021-10-18] MEDS: SODIUM CHLORIDE 0.9% 1000ML 1,000 ML IV SCH (02:53)
[2021-10-18] MEDS: oxyCODONE HCL IR 5 MG TAB (IMMEDIATE RELEASE) PO PRN ×2 (03:23→11:42)
[2021-10-18] MEDS: ceFAZolin 2000MG 2,000 MG/15 ML SYR IV SCH (05:18)
--- NOTE | 2021-10-18 06:41 | Orthopedic Progress Note ---
Date of Service October 18, 2021 Assessment & Plan (1) Status post left knee replacement: Overall is doing well. Is not having much pain in the left knee. He will be seen by physical therapy today for ambulation and range of motion exercises. He is on aspirin for DVT prophylaxis. He can be discharged home later today. He will follow-up with orthopedics in 2 weeks. Irving Salazar was seen and examined at bedside this morning. Overall is doing very well. Is not having much pain in the left knee. He has not been out of bed yet. He has no complaints.. Review of Systems All systems reviewed & are unremarkable except as noted in HPI & below. Physical Exam On physical examination of the left knee, the dressing is clean and dry. His leg is out full extension. He has active dorsiflexion and plantarflexion of the left ankle.. Results & Data Results & Data Laboratory Results . Diagnostic Findings Postoperative x-rays of the left knee show the prosthesis to be in anatomic alignment without any evidence of fracture, desiccation, or loosening. PG Care Time/CCT Total # of Minutes Spent Total Time Spent with Patient: Total time spent is greater than 50% in coordination of care (as documented) at patient's floor/unit and/or counseling patient: Coding Level of Care Code 11693 Post Operative Follow-Up Diagnoses Status post left knee replacement Z96.652
--- NOTE | 2021-10-18 06:42 | Discharge Summary ---
Date of Service October 18, 2021 Principal Diagnosis Same as "Discharge Diagnosis" noted below under Discharge Instructions. Discharge Exam On physical examination of the left knee, the dressing is clean and dry. His leg is out full extension. He has active dorsiflexion and plantarflexion of the left ankle.. Discharge Data Procedures Performed Operation Date: 10/17/21 12:30 Actual Procedures p Left Total Knee Arthroplasty(Left) - Leif Morales DO Ordered Studies 10/17/21 05:00 US - OR guided needle placemen Routine Hospital Course (1) Status post left knee replacement: On October 17, 2021 Martin arrived at [facility] and underwent a left knee replacement without complication. He had a spinal anesthetic. Postoperatively he was started on aspirin for DVT prophylaxis and transferred to the general orthopedic floors. His hospital course was uneventful. On postop day #1, his vital signs were stable and his pain was well controlled. He was able to participate well with physical therapy doing ambulation and range of motion exercises. He was then discharged home. He will follow-up with orthopedics in 2 weeks. PG Care Time/CCT Total # of Minutes Spent Total Time Spent with Patient: Total time spent is greater than 50% in coordination of care (as documented) at patient's floor/unit and/or counseling patient: Discharge Plan Discharge Items Patient Disposition: Home - Home Health Services Reason For Visit: DJD Left Knee Discharge Diagnosis: Left knee replacement Activity: Per Instructions section Non-emergency contact: Surgeon Call non-emergency contact if: your wound has increased redness and your wound has increased drainage Follow-up/Referrals: PCP,NO [Primary Care Provider] - Diet: Regular Addtl Attending Provider Instructions: Activity and Therapy Recommendations: * If you are using [facility] then therapy will be provided at your home until they feel you have accomplished all of your goals. * If you are using [facility] then Physical Therapy will be provided until they feel you are ready to start Outpatient Physical Therapy. * If you are not using home therapy then Outpatient Physical Therapy should start about 3-5 days from your day of surgery. Therapy will last about 6-10 weeks * It is important not to put a pillow under your knee when you are relaxing or sleeping. It is just as important to make sure you are getting your knee perfectly straight as it is to regain your knee bend. * You were shown a series of exercises in the hospital. Do these exercises three times each day including the exercises you were shown in physical therapy. * Get up and walk several times each day. For the first four weeks, try not to stand or walk for more than one hour at a time. If you do stand or walk for more than one hour, you will not hurt anything, but your leg will likely swell. * As you feel comfortable, you may change from the walker or crutches to a cane and then to independent walking. Medications: * Narcotic You will likely be sent home from the hospital with a prescription for the narcotic pain medication that worked best throughout your stay. * Aspirin Most patients will be required to take Aspirin 81mg twice a day for 6 weeks after surgery. This is obtained [id number] and a prescription is not necessary. * Other medications may be prescribed for specific circumstances. If you have any questions, please call the office at . * Resume previous home medications unless otherwise instructed TEDs/Elastic Stockings: The white elastic stockings help limit swelling and prevent blood clots from forming in your legs.~ The more you wear them, the more they work. Wear them for six weeks. Dressing Care: The dressing can be changed after physical therapy on postop day #1. Daily dry dressing changes for a few days, especially if the incision is still draining some. If the incision is not draining then you may leave the jennifer open to air. If there is a little bit of drainage or if the jennifer are getting stuck on your clothing then cover the incision with a dry dressing. The jennifer will be removed at your 2 week follow-up appointment. Showering: You may shower 5 days from the day of surgery as long as the incision is no longer draining. You may shower with the jennifer exposed. Let soapy water run over the jennifer and pat them dry. Do not scrub or soak the incision. Things To Watch For: * Drainage from the incision site that occurs more than one week after your surgery. * Increased redness at the incision site. * Fever above 102 degrees Fahrenheit. * Unusual chest pain or shortness of breath. * Call [facility] at with any of the above problems Follow-Up Visit: Follow-up with Dr. Morales's PA (Leif Cueva) 2-3 weeks after your day of surgery. He will remove your jennifer and answer any questions. If you have any additional questions or concerns, Dr Morales is usually in the office at the same time and will be available An appointment was probably scheduled when you signed-up for surgery in the office. If you have any questions call Office Instructions: More detailed instructions as well as Frequently Asked Questions were provided in a folder by our office when you signed-up for surgery. Please review these instructions when you get home. If you have any further questions or concerns, please feel free to call the office at [phone] Pending Studies at Discharge: No Stand-Alone Forms: [facility] Medications and DC Order Prescriptions: Continued meloxicam [Mobic] 15 mg tablet 15 mg PO QPM omega-3 fatty acids [Fish Oil Concentrate] 1,000 mg capsule 2,000 mg PO QPM Centrum Silver Ultra Men's 300-600-300 mcg tablet 1 tab PO QPM lisinopril 40 mg tablet 40 mg PO QPM tamsulosin 0.4 mg capsule 0.4 mg PO QPM hydrochlorothiazide 25 mg tablet 25 mg PO QPM simvastatin 10 mg tablet 10 mg PO QPM acetaminophen 500 mg Capsule 1,000 mg PO Q6H PRN (Reason: Pain) oxycodone-acetaminophen 5-325 mg tablet 1 tab PO Q6H PRN (Reason: pain) Qty: 30 0RF aspirin 81 mg tablet,delayed release (DR/EC) 81 mg PO BID 42 Days Qty: 0 0RF Rx Instructions: takes both at one time Discharge Orders: Discharge Order (Routine); Ordered 10/18/21 Ordered By: Leif Morales Admission Data Admit Date/Time: 10/17/21 15:06 Attending Provider: Leif Morales Admit Provider: Leif Morales Primary Care Provider: PCP,DEVIN
[2021-10-18 07:22] LABS: Hematocrit (blood only) 37.8 % (40.1-51.0); Hemoglobin 13.4 g/dl (14.0-18.0); Mean Corpuscular Hemoglobin 28.9 pg (25.0-34.0); Mean Corpuscular Hgb Conc 35.4 g/dL (32.0-36.0); Mean Corpuscular Volume 81.6 fL (80.0-100.0); Mean Platelet Volume 10.6 fL (9.4-12.4); Platelet Count 263 K/uL (130-400); RDW Coefficient of Variation 13.6 % (11.5-14.5); RDW Standard Deviation 40.1 fL (36.4-46.3); Red Blood Count 4.63 M/uL (4.63-6.08); White Blood Count 21.95 K/ul (4.8-10.8)
[2021-10-18 07:44] LABS: BUN Creatinine Ratio 21.5 (10-20); Calcium 8.7 mg/dl (8.5-10.1); Creatinine Clr Calc Pharmacy 56.8 ml/min; Est GFR (African American) 69.9 ml/min; Est GFR (Non-African American) 60.3 ml/min; Potassium 3.8 mmol/L (3.5-5.1)
[2021-10-18] MEDS: DOCUSATE SODIUM 100 MG CAP PO SCH (08:03)
[2021-10-18] MEDS: ASPIRIN 81 MG ECTAB PO SCH (08:03)
[2021-10-18] MEDS ORDERED: MULTIVITAMIN TAB PO SCH (09:00)
== END 2021-10-18 12:05 | disposition home health service (06) ==
LOC: ASU 09:53 → 3E 09:53